=== PATIENT | female | born 1955 | race Caucasian/White ===

== ENCOUNTER 2017-07-12 17:28 | Emergency (ER) | payer BC ==
[~2017-07-12] VITALS: Ht 165.1 cm; Wt 90.8 kg
[2017-07-12 17:39] VITALS: TEMP 36.8; Ht 165.1 cm; Wt 90.8 kg
[2017-07-12] MEDS ORDERED: IBUPROFEN 600 MG TAB PO STA (17:42)
--- NOTE | 2017-07-12 17:53 | EMERGENCY ROOM VISIT NOTE ---
History Report prepared by Anabela: Louis Oneal Under the Supervision of: Dr. Jadiel Ragland M.D. First contact with patient: 17:35 Stated Complaint: ETOH, FALL History of Present Illness The patient is a 61 year old female who presents to the Emergency Room with complaints of constant facial pain s/p fall occurring just prior to arrival. She states that she was walking up a ramp at the [facility] when she tripped and fell on her face. She denies any other pain. The patient is not on any blood thinners. She admits to drinking alcohol today. She states that her bite feels normal. The patient's tetanus is up to date. She is reported to have blown a 0.162 by breathalyzer on scene. Source of History: patient Onset: Just prior to arrival Position: head (face) Timing: constant Associated Symptoms: No neck pain, No chest pain, No abdominal pain, No back pain Review of Systems See HPI for pertinent positives & negatives. A total of 10 systems reviewed and were otherwise negative. Past Medical & Surgical Medical Problems: (1) HTN (hypertension) Family History No pertinent family history stated. Social History Marital Status: Current/Historical Medications Scheduled Amlodipine Besylate (Norvasc), 10 MG PO DAILY Sertraline (Zoloft), 50 MG PO DAILY Scheduled PRN Ibuprofen Tab (Advil), 400 MG PO Q6H PRN for Pain Allergies Uncoded Allergies: CRAB MEAT (Allergy, Unknown, Unknown, 07/12/17) Physical Exam Vital Signs Date Time Temp Pulse Resp B/P (MAP) Pulse Ox O2 Delivery O2 Flow Rate FiO2 07/12/17 18:52 84 18 141/98 98 07/12/17 17:39 36.8 82 18 134/67 98 Room Air Physical Exam GENERAL: Patient is in no acute distress. HEENT: Abrasion to the nasal bridge and tip. No laceration requiring repair. No nasal instability noted on exam. No facial bony step off. Abrasion and superficial laceration to the upper lip with some upper lip edema. No involvement of the yun border. No dental trauma. Normal bite. No scalp hematomas. NECK: No stridor. Trachea is midline. Non-tender posterior cervical spine. LUNGS: Clear to auscultation bilaterally, no wheeze, no rhonchi, breath sounds equal. HEART: Without murmurs gallops or rubs, regular rate and rhythm. ABDOMEN: Soft, nontender, bowel sounds positive, no hernias, no peritonitis. EXTREMITIES: No cyanosis or edema, full range of motion of all the joints without pain or difficulty, no signs for acute trauma. NEUROLOGIC: Mildly intoxicated with alcohol. Moving all extremities equally. Awake, alert and oriented x3. SKIN: No rash, no jaundice, no diaphoresis. Medical Decision & Procedures ER Provider Diagnostic Interpretation: X-ray results as stated below per interpretation by me and the radiologist: NASAL BONES MIN 3 VIEWS FINDINGS: There is no orbital emphysema. There are no Max sinus air-fluid levels. There is an age-indeterminate nondisplaced fracture involving the tip of the nasal bones. IMPRESSION: Subtle age-indeterminate nondisplaced fracture involving the tip of the nasal bones Electronically signed by: Mike Adames M.D. 07/12/2017 6:30 PM Medications Administered Medications (Trade) Dose Ordered Sig/Payam Route Start Time Stop Time Status Last Admin Dose Admin Ibuprofen (Motrin Tab) 600 mg NOW STAT PO 07/12/17 17:42 07/12/17 17:44 DC 07/12/17 17:52 600 MG ED Course 1735: The patient was evaluated in room B12B. A complete history and physical exam was performed. 174: Ordered Motrin Tab 600 mg PO. 1845: Reevaluated the patient. Discussed results and discharge instructions: she verbalized understanding and agreement. The patient is ready for discharge. Medical Decision The patient is a 61 year old female who presents to the ED with complaints of facial pain s/p fall. Differential diagnoses considered include nasal fracture , alcohol intoxication, ICH, skull fracture, cervical spine injury, and extremity fracture. The patient presents after tripping and falling striking her face. She was using alcohol. She has abrasions to her nose and upper lip with a superficial laceration to the upper lip that does not involve the vermilion border. There were no facial bony step-offs to suggest fracture. She had no scalp hematomas. There was no loss of consciousness. No evidence for injury to the neck, chest , abdomen or extremities. The patient's tetanus status was current. Nasal films were done showing a subtle nasal bone fracture. The patient's abrasions were cleansed. The lip laceration is well closed and I do not think it will benefit from suturing. The patient was happy with no sutures. The patient was told to watch for infection, Vaseline to the area of injury was recommended. Ice for swelling. The patient is to be woken once tonight by her family to make sure she is okay. She is to stay hydrated and to follow with her doctor for a recheck this upcoming week. If worsening, she can return. Medication Reconcilliation Current Medication List: was personally reviewed by me Blood Pressure Screening Patient's blood pressure: Elevated blood pressure Blood pressure disposition: Elevated BP felt to be situational Impression Primary Impression: Facial trauma Additional Impressions: Alcohol use Fall Nasal fracture Scribe Attestation The scribe's documentation has been prepared under my direction and personally reviewed by me in its entirety. I confirm that the note above accurately reflects all work, treatment, procedures, and medical decision making performed by me. Departure Information Dispostion Home / Self-Care Forms HOME CARE DOCUMENTATION FORM, IMPORTANT VISIT INFORMATION Patient Instructions My [facility] Additional Instructions no more alcohol today rest stay well hydrated ice to the face to help the swelling motrin or tylenol for pain sleep with the head elevated alittle to help the swelling watch for infection--redness, fever, drainage keep the areas clean with soap and water--vasoline to cover Problem Qualifiers Primary Impression: Facial trauma Encounter type: initial encounter Qualified Codes: S09.93XA - Unspecified injury of face, initial encounter Additional Impressions: Fall Encounter type: initial encounter Qualified Codes: W19.XXXA - Unspecified fall, initial encounter Nasal fracture Encounter type: initial encounter Fracture type: closed Qualified Codes: S02.2XXA - Fracture of nasal bones, initial encounter for closed fracture
--- NOTE | 2017-07-12 18:31 | DIAGNOSTIC IMAGING REPORT ---
NASAL BONES MIN 3 VIEWS CLINICAL HISTORY: Nasal pain status post trauma COMPARISON STUDY: No previous studies for comparison. FINDINGS: There is no orbital emphysema. There are no Max sinus air-fluid levels. There is an age-indeterminate nondisplaced fracture involving the tip of the nasal bones. IMPRESSION: Subtle age-indeterminate nondisplaced fracture involving the tip of the nasal bones Electronically signed by: Mike Adames M.D. 07/12/2017 6:30 PM Dictated Date/Time: 07/12/2017 6:29 PM
[2017-07-12] MEDS ORDERED: SERT50TA PO (18:33)
[2017-07-12] MEDS ORDERED: AMLO10TA2 PO (18:33)
[2017-07-12] MEDS ORDERED: IBUP-103 PO (18:33)
[2017-07-12 18:52] VITALS: BP 141/98; PULSE 84; O2SAT 98
== END 2017-07-12 18:53 | disposition home or self-care (01) ==
LOC: C.EDB 17:30
DX: S09.93XA Unspecified injury of face, initial encounter (principal); S02.2XXA Fracture of nasal bones, initial encounter for closed fracture; Z72.89 Other problems related to lifestyle; W17.89XA Other fall from one level to another, initial encounter; Y93.01 Activity, walking, marching and hiking; Y99.8 Other external cause status; I10 Essential (primary) hypertension; Z79.899 Other long term (current) drug therapy